=== PATIENT | female | born 1980 | race Caucasian/White ===

== ENCOUNTER → 2017-07-19 | Outpatient (CLI) | payer OTHER ==
[2017-07-19 17:21] LABS: Anisocytosis Slight; HGB 8.6 gm/dL (11.4-16.0); Hypochromasia Marked; MCH 22.2 pg (25.0-35.0); MCHC 28.7 g/dL (31.0-37.0); MCV 77.5 fL (80.0-100.0); Mean Platelet Volume 7.7; Microcytosis Slight; Platelet Count 189 k/uL (150-450); RBC 3.87 m/uL (3.80-5.40); WBC 6.3 k/uL (3.8-10.6)
== END ==
LOC: LABPAT 16:34
PROVIDERS: ATTEND Obstetrics & Gynecology
DX: Z01.812 Encounter for preprocedural laboratory examination (principal)
CPT/HCPCS: 36415; 85027

== ENCOUNTER 2017-07-24 06:15 | Day surgery (SDC) | payer OTHER ==
[2017-07-19 16:00] VITALS: BMI 22.8
--- NOTE | 2017-07-23 16:38 | P.HPOB ---
History of Present Illness H&P Date: 07/23/17 Chief Complaint: Family planning Jerilyn is a 29-year-old female who is completed her family planning desires permanent sterilization. Risks/benefits/alternatives to left scopic tubal occlusion were discussed with the patient in detail and all questions were answered for the patient prior to proceeding to the operating room. Risks did include but were not limited to bleeding, infection, damage to bladder, damage to bowel, vascular injuries, nerve damage even potentially . Past Medical History Additional Past Medical History / Comment(s): anemia History of Any Multi-Drug Resistant Organisms: None Reported Past Surgical History: Section, Orthopedic Surgery Additional Past Surgical History / Comment(s): wrist procedure Past Anesthesia/Blood Transfusion Reactions: No Reported Reaction, Motion Sickness Smoking Status: Current every day smoker - Past Family History Mother Family Medical History: Cancer Additional Family Medical History / Comment(s): cervical Medications and Allergies Home Medications Medication Instructions Recorded Confirmed Type No Known Home Medications [No 07/19/17 07/19/17 History Known Home Medications] Allergies Allergy/AdvReac Type Severity Reaction Status Date / Time No Known Allergies Allergy Verified 07/19/17 15:53 Exam Osteopathic Statement: *. No significant issues noted on an osteopathic structural exam other than those noted in the History and Physical/Consult. - OBG Physical Exam Breast: both: normal (no masses) Abdomen: bowel sounds normal, no diffuse tenderness, no bruit present, no guarding noted, no hepatomegaly, no splenomegaly, no mass Vulva: both: normal Vagina: normal moisture, no discharge Cervix: no lesion, no discharge Uterus: normal size, normal contour Adnexa: both: normal Anus/Rectum: normal perianal skin, no rectal mass, no hemorrhoids, heme negative Assessment and Plan Assessment: Family planning
[~2017-07-24 06:15] MED LIST: DEXAMETHASONE SOD PHOSPHATE 10 MG/ML 1 ML VIAL IV ONE; LACTATED RINGERS 1,000 ML IV SCH; MIDAZOLAM 2 MG/2 ML VIAL IV PRN; ONDANSETRON 4 MG/2 ML VIAL IVP ONE; Pre Op ABX Message 1 EACH MISC MISCELLANE ONE; SCOPOLAMINE 1.5MG/72HR PATCH TRANSDERM ONE; fentaNYL (PF) 50 MCG/ML 2 ML AMP IV PRN
[2017-07-24 06:50] VITALS: RESP 16
[2017-07-24] MEDS ORDERED: BUPIVACAINE (PF) 0.5% 30 ML VIAL SQ ONE ×2 (07:47→08:26)
[2017-07-24] MEDS ORDERED: LIDOCAINE 1% INJ 10MG/ML (20 ML MDV) ONE (07:56)
[2017-07-24] MEDS ORDERED: MIDAZOLAM 2 MG/2 ML VIAL ONE (07:56)
[2017-07-24] MEDS ORDERED: KETOROLAC 30 MG/ML 1 ML VIAL ONE (07:56)
[2017-07-24] MEDS ORDERED: fentaNYL (PF) 50 MCG/ML 2 ML AMP ONE (07:56)
[2017-07-24] MEDS ORDERED: PROPOFOL 10 MG/ML 20 ML VIAL IV ONE (07:56)
[2017-07-24] MEDS ORDERED: SUCCINYLCHOLINE CHLORIDE 100 MG/5 ML SYR IV ONE (07:56)
--- NOTE | 2017-07-24 08:36 | P.OP ---
Date of Procedure: 07/24/17 Preoperative Diagnosis: Family planning Postoperative Diagnosis: Same Procedure(s) Performed: Laparoscopic tubal ligation with Filshie clips Anesthesia: KILEY Surgeon: Robert Baker Estimated Blood Loss (ml): 3 Urine output (ml): 20 Pathology: none sent Condition: stable Disposition: same day Operative Findings: Normal female pelvic anatomy Description of Procedure: Patient was taken to the operating suite where a general anesthetic was found be adequate. She was prepped and draped in the normal sterile fashion and placed in the dorsal lithotomy position. Initially a speculum was inserted into the vagina and the anterior lip cervix was identified and grasped with Allis clamp. Uterus was then sounded to 9 cm and a uterine manipulator was inserted without difficulty. Red rubber catheter was then used to drain the bladder of urine and other instruments removed from the vagina. Gloves were then changed and attention was turned to the abdominal portion of procedure. 3 mL of quarter percent Marcaine was then injected periumbilically and a 5 mm skin incision was made through this incision. Under direct visualization with an optical trocar and sleeve the camera was then inserted. Once peritoneal placement was assured gas was allowed to fully insufflate the abdomen and patient was then placed in steep Trendelenburg position. A second port and sleeve were then again inserted under direct visualization through an 8 mm skin incision 3 cm above the pubic symphysis. Uterus was then elevated observations pelvis was then made. First the right fallopian tube than left fallopian tube pedicles applied 2-3 cm from uterine cornu. With no bleeding noted in the mesosalpinx, instruments were removed and gas was allowed to expel from the abdomen. 5 deep breaths were provided during this process. Once completed and all incidents were removed 4-0 Vicryl used to close incision subcuticularly and the remaining 7 mL of quarter percent Marcaine was then injected around these incisions. Instruments were then removed from the vagina and patient was then taken to the recovery room in stable and satisfactory condition. Sponge, lap, needle counts were all correct 2. Plan - Discharge Summary New Discharge Prescriptions: New Ibuprofen [Motrin] 600 mg PO Q6HR PRN #30 tab PRN Reason: Pain Discharge Medication List Ibuprofen [Motrin] 600 mg PO Q6HR PRN #30 tab 07/24/17 [Rx] Follow up Appointment(s)/Referral(s): Robert Baker DO [Doctor of Osteopathic Medicine] - 2 Weeks Activity/Diet/Wound Care/Special Instructions: , And pelvic rest. If any high temperatures, heavy bleeding, or severe pain call my office Discharge Disposition: HOME SELF-CARE
[2017-07-24 08:53] VITALS: TEMP 97
[2017-07-24] MEDS: MEPERIDINE 50 MG/ML SYRINGE IVP ONE ×2 (09:09→09:19)
[2017-07-24] MEDS ORDERED: IBUPROFEN 200 MG TAB PO ONE (10:07)
[2017-07-24 10:15] VITALS: BP 138/87; PULSE 84
== END 2017-07-24 10:33 | disposition home or self-care (01) ==
LOC: OR 06:15
PROVIDERS: ATTEND Obstetrics & Gynecology
DX: Z30.2 Encounter for sterilization (principal); F17.200 Nicotine dependence, unspecified, uncomplicated
CPT/HCPCS: 81025; 58671; J2250; J1100; J2175; J2405; J2001; J3010; J1885; J0330; J2704

== ENCOUNTER → 2018-01-03 | Outpatient (CLI) | payer OTHER ==
--- NOTE | 2018-01-03 17:22 | US ---
EXAMINATION TYPE: US pelvic complete DATE OF EXAM: 01/03/2018 COMPARISON: NONE CLINICAL HISTORY: N92.6 Irregular menses. TECHNIQUE: Transabdominal (TA). Date of LMP: 12/04/2017 EXAM MEASUREMENTS: Uterus: 9.7 x 5.2 x 7.2 cm Endometrial Stripe: 1.2 cm Right Ovary: 3.3 x 3.0 x 2.9 cm Left Ovary: 3.5 x 2.5 x 2.6 cm 1. Uterus: Anteverted wnl 2. Endometrium: wnl 3. Right Ovary: wnl 4. Left Ovary: wnl 5. Bilateral Adnexa: wnl 6. Posterior cul-de-sac: no free fluid IMPRESSION: 1. Endometrial stripe measuring 1.2 cm. Correlate with the menstrual cycle. 2. Pelvic ultrasound otherwise unremarkable.
== END | disposition home or self-care (01) ==
LOC: RADUSWWP 16:03
PROVIDERS: ATTEND Obstetrics & Gynecology
DX: N92.6 Irregular menstruation, unspecified (principal)
CPT/HCPCS: 76856

== ENCOUNTER 2018-06-06 16:34 | Emergency (ER) | payer OTHER ==
--- NOTE | 2018-06-06 18:03 | ED ---
Psych HPI - General Source: patient, family, RN notes reviewed, old records reviewed Mode of arrival: ambulatory Limitations: altered mental status (Alcohol intoxication) - History of Present Illness MD Complaint: suicidal ideation, feels depressed -: unknown Associated Psychiatric Symptoms: depression, suicidal ideation History of same: Yes Quality: intermittent Improves With: none Worsens With: none Context: recent alcohol abuse Associated Symptoms: denies other symptoms Treatments Prior to Arrival: placed on mental health hold If Self Harm: admits thoughts of self harm <Diony Olguin - Last Filed: 06/06/18 23:48> <Diony Leija - Last Filed: 06/07/18 10:37> - General Chief Complaint: Psychiatric Symptoms Stated Complaint: EPS eval Time Seen by Provider: 06/06/18 16:47 - Related Data Home Medications Medication Instructions Recorded Confirmed Ferrous Sulfate [Feosol] 325 mg PO DAILY 06/06/18 06/06/18 Allergies Allergy/AdvReac Type Severity Reaction Status Date / Time No Known Allergies Allergy Verified 06/06/18 16:50 Review of Systems ROS Other: All systems not noted in ROS Statement are negative. <Diony Olguin - Last Filed: 06/06/18 23:48> ROS Other: All systems not noted in ROS Statement are negative. <Diony Leija - Last Filed: 06/07/18 10:37> ROS Statement: Those systems with pertinent positive or pertinent negative responses have been documented in the HPI. Past Medical History Additional Past Medical History / Comment(s): anemia History of Any Multi-Drug Resistant Organisms: None Reported Past Surgical History: Section, Orthopedic Surgery Additional Past Surgical History / Comment(s): wrist procedure Past Anesthesia/Blood Transfusion Reactions: No Reported Reaction, Motion Sickness Past Psychological History: No Psychological Hx Reported Past Alcohol Use History: Abuse, Daily, Heavy Past Drug Use History: Marijuana - Past Family History Mother Family Medical History: Cancer Additional Family Medical History / Comment(s): cervical <Diony Olguin - Last Filed: 06/06/18 23:48> General Exam Limitations: no limitations General appearance: alert, in no apparent distress, appears intoxicated Head exam: Present: atraumatic, normocephalic, normal inspection Eye exam: Present: normal appearance, PERRL, EOMI. Absent: scleral icterus, conjunctival injection, periorbital swelling ENT exam: Present: normal exam, mucous membranes moist Neck exam: Present: normal inspection. Absent: tenderness, meningismus, lymphadenopathy Respiratory exam: Present: normal lung sounds bilaterally. Absent: respiratory distress, wheezes, rales, rhonchi, stridor Cardiovascular Exam: Present: regular rate, normal rhythm, normal heart sounds. Absent: systolic murmur, diastolic murmur, rubs, gallop, clicks GI/Abdominal exam: Present: soft, normal bowel sounds. Absent: distended, tenderness, guarding, rebound, rigid Extremities exam: Present: normal inspection, full ROM, normal capillary refill. Absent: tenderness, pedal edema, joint swelling, calf tenderness Back exam: Present: normal inspection Neurological exam: Present: alert, oriented X3, CN II-XII intact Psychiatric exam: Present: normal affect, normal mood Skin exam: Present: warm, dry, intact, normal color. Absent: rash <Diony Olguin Filed: 06/06/18 23:48> Course <Diony Olguin Filed: 06/06/18 23:48> Vital Signs 06/06/18 06/06/18 06/07/18 16:42 20:16 03:35 Temperature 98.2 F Pulse Rate 118 H 108 H 118 H Respiratory 18 16 16 Rate Blood Pressure 151/94 139/89 129/89 O2 Sat by Pulse 98 100 97 Oximetry 06/07/18 06:06 Temperature 97.6 F Pulse Rate 94 Respiratory 16 Rate Blood Pressure 144/88 O2 Sat by Pulse 97 Oximetry - Reevaluation(s) Reevaluation #1: 06/06/18 23:48 Patient with medically clear 5 AM (Diony Olguin) Medical Decision Making <Diony Leija Last Filed: 06/07/18 10:37> - Medical Decision Making Once the patient was sober she denied any intention of harming herself. EPS evaluated the patient and determined that she could go home. (Diony Leija) Disposition <Diony Olguin Last Filed: 06/06/18 23:48> Is patient prescribed a controlled substance at d/c from ED?: No Time of Disposition: 10:37 <Diony Leija Filed: 06/07/18 10:37> Clinical Impression: Alcohol intoxication, Situational depression Disposition: HOME SELF-CARE Condition: Good Instructions (If sedation given, give patient instructions): Depression (ED), Alcohol Intoxication (ED) Referrals: Vlad Jamil MD [Primary Care Provider] - 1-2 days
[2018-06-06 20:17] VITALS: RESP 16
[2018-06-06] MEDS ORDERED: ACETAMINOPHEN TAB 325 MG TAB PO STA (23:53)
[2018-06-07] MEDS ORDERED: SODIUM CHLORIDE 0.9% 1,000 ML IV ONE (04:25)
[2018-06-07] MEDS ORDERED: ACETAMINOPHEN TAB 325 MG TAB PO STA (04:27)
[2018-06-07] MEDS ORDERED: chlordiazePOXIDE 25 MG CAP PO STA (05:46)
[2018-06-07 06:10] VITALS: BP 144/88; PULSE 94; TEMP 97.6
== END 2018-06-07 10:59 | disposition home or self-care (01) ==
LOC: EC 16:34
DX: F43.21 Adjustment disorder with depressed mood (principal); F10.129 Alcohol abuse with intoxication, unspecified; Z79.899 Other long term (current) drug therapy; Z86.2 Personal history of diseases of the blood and blood-forming organs and certain disorders involving the immune mechanism
CPT/HCPCS: 82075; 96360; 99284

== ENCOUNTER 2018-07-31 20:14 | Emergency (ER) | payer OTHER ==
[2018-07-31 20:30] VITALS: RESP 16
[2018-07-31] MEDS ORDERED: SODIUM CHLORIDE 0.9% 1,000 ML IV ONE (21:17)
[2018-07-31] MEDS ORDERED: SODIUM CHLORIDE 0.9% 500 ML 500 ML IV ONE (21:17)
[2018-07-31] MEDS ORDERED: LORazepam 2 MG/ML INJ IV STA (21:18)
--- NOTE | 2018-07-31 21:27 | ED ---
General Adult HPI - General Chief complaint: Weakness Stated complaint: ETOH Time Seen by Provider: 07/31/18 20:25 Source: patient, EMS, RN notes reviewed Mode of arrival: EMS Limitations: no limitations - History of Present Illness Initial comments: This is a 38-year-old female who comes in stating she is an alcoholic. Patient states she's been trying to stop drinking for the last for 5 days. Patient states about 4 days ago she fell and hit the back of her head and there was a large scalp hematoma at that time. Patient states since then she's felt a little more dizzy and has a slight headache. Patient states this also could be because she is trying to stop drinking. Patient states she's had no recent fever chills or cough. Patient denies chest pain palpitations difficulty breathing or shortness of breath per patient denies abdominal pain patient denies nausea vomiting diarrhea. Patient denies any other injury at this time patient denies any neck pain patient denies any numbness weakness. Patient denies any visual disturbance. - Related Data Home Medications Medication Instructions Recorded Confirmed Ferrous Sulfate [Feosol] 325 mg PO DAILY 06/06/18 07/31/18 Allergies Allergy/AdvReac Type Severity Reaction Status Date / Time No Known Allergies Allergy Verified 07/31/18 21:23 Review of Systems ROS Statement: Those systems with pertinent positive or pertinent negative responses have been documented in the HPI. ROS Other: All systems not noted in ROS Statement are negative. Past Medical History Additional Past Medical History / Comment(s): anemia History of Any Multi-Drug Resistant Organisms: None Reported Past Surgical History: Section, Orthopedic Surgery Additional Past Surgical History / Comment(s): wrist procedure Past Anesthesia/Blood Transfusion Reactions: No Reported Reaction, Motion Sickness Past Psychological History: Anxiety, Depression Smoking Status: Current every day smoker Past Alcohol Use History: Abuse, Daily, Heavy Past Drug Use History: Marijuana - Past Family History Mother Family Medical History: Cancer Additional Family Medical History / Comment(s): cervical General Exam - General Exam Comments Initial Comments: GENERAL: Patient is well-developed and well-nourished. Patient is nontoxic and well- hydrated and in no acute distress. ENT: Neck is soft and supple. No significant lymphadenopathy is noted. Oropharynx is clear. Moist mucous membranes. Neck has full range of motion without eliciting any pain. EYES: The sclera were anicteric and conjunctiva were pink and moist. Extraocular movements were intact and pupils were equal round and reactive to light. Eyelids were unremarkable. PULMONARY: Unlabored respirations. Good breath sounds bilaterally. No audible rales rhonchi or wheezing was noted. CARDIOVASCULAR: There is a regular rate and rhythm without any murmurs gallops or rubs. ABDOMEN: Soft and nontender with normal bowel sounds. No palpable organomegaly was noted. There is no palpable pulsatile mass. SKIN: Skin is clear with no lesions or rashes and otherwise unremarkable. NEUROLOGIC: Patient is alert and oriented x3. Cranial nerves II through XII are grossly intact. Motor and sensory are also intact. Normal speech, volume and content. Symmetrical smile. MUSCULOSKELETAL: Normal extremities with adequate strength and full range of motion. LYMPHATICS: No significant lymphadenopathy is noted PSYCHIATRIC: Normal psychiatric evaluation. Limitations: no limitations Course Vital Signs 07/31/18 07/31/18 20:23 22:09 Temperature 97.4 F L Pulse Rate 82 79 Respiratory 16 16 Rate Blood Pressure 145/99 139/84 O2 Sat by Pulse 97 100 Oximetry Medical Decision Making - Medical Decision Making EKG shows normal sinus rhythm at 81 bpm UT interval 252 QRS is 86 QT interval 396 QTC is 460. Patient's EKG shows no ST segment elevation or depression. CT of the brain shows no acute abnormality Patient was much improved after the Ativan. - Lab Data Result diagrams: 07/31/18 21:20 07/31/18 21:20 Lab Results 07/31/18 07/31/18 Range/Units 21:20 21:20 WBC 3.3 L (3.8-10.6) k/uL RBC 3.82 (3.80-5.40) m/uL Hgb 11.3 L (11.4-16.0) gm/dL Hct 36.5 (34.0-46.0) % MCV 95.8 (80.0-100.0) fL MCH 29.7 (25.0-35.0) pg MCHC 31.0 (31.0-37.0) g/dL RDW 19.4 H (11.5-15.5) % Plt Count 99 L (150-450) k/uL Neutrophils % 67 % Lymphocytes % 21 % Monocytes % 8 % Eosinophils % 1 % Basophils % 0 % Neutrophils # 2.2 (1.3-7.7) k/uL Lymphocytes # 0.7 L (1.0-4.8) k/uL Monocytes # 0.3 (0-1.0) k/uL Eosinophils # 0.0 (0-0.7) k/uL Basophils # 0.0 (0-0.2) k/uL Anisocytosis Slight Macrocytosis Slight Sodium 138 (137-145) mmol/L Potassium 3.8 (3.5-5.1) mmol/L Chloride 105 (98-107) mmol/L Carbon Dioxide 23 (22-30) mmol/L Anion Gap 10 mmol/L BUN 11 (7-17) mg/dL Creatinine 0.55 (0.52-1.04) mg/dL Est GFR (CKD-EPI)AfAm >90 (>60 ml/min/1.73 sqM) Est GFR (CKD-EPI)NonAf >90 (>60 ml/min/1.73 sqM) Glucose 77 (74-99) mg/dL Calcium 9.4 (8.4-10.2) mg/dL Magnesium 1.9 (1.6-2.3) mg/dL Total Bilirubin 0.6 (0.2-1.3) mg/dL AST 49 H (14-36) U/L ALT 41 (9-52) U/L Alkaline Phosphatase 58 (38-126) U/L Total Protein 6.8 (6.3-8.2) g/dL Albumin 4.3 (3.5-5.0) g/dL Disposition Clinical Impression: Alcoholism, Alcohol withdrawal Disposition: HOME SELF-CARE Condition: Good Instructions (If sedation given, give patient instructions): Alcohol Withdrawal (ED) Additional Instructions: Patient should follow-up with rehabilitation facility. Is patient prescribed a controlled substance at d/c from ED?: No Referrals: None,Stated [Primary Care Provider] - 1-2 days Time of Disposition: 23:47
[2018-07-31 21:35] LABS: Anisocytosis Slight; Basophils % (A) 0 %; Eosinophils % (A) 1 %; HCT 36.5 % (34.0-46.0); HGB 11.3 gm/dL (11.4-16.0); Lymphocytes # (A) 0.7 k/uL (1.0-4.8); Lymphocytes % (A) 21 %; MCH 29.7 pg (25.0-35.0); MCV 95.8 fL (80.0-100.0); Macrocytosis Slight; Mean Platelet Volume 7.1; Monocytes # (A) 0.3 k/uL (0-1.0); Monocytes % (A) 8 %; Neutrophils # (A) 2.2 k/uL (1.3-7.7); Neutrophils % (A) 67 %; RBC 3.82 m/uL (3.80-5.40); RDW 19.4 % (11.5-15.5); WBC 3.3 k/uL (3.8-10.6)
[2018-07-31 21:46] LABS: ALT 41 U/L (9-52); AST 49 U/L (14-36); Albumin 4.3 g/dL (3.5-5.0); Alkaline Phosphatase 58 U/L (38-126); Anion Gap 10 mmol/L; Blood Urea Nitrogen 11 mg/dL (7-17); Calcium 9.4 mg/dL (8.4-10.2); Carbon Dioxide 23 mmol/L (22-30); Chloride 105 mmol/L (98-107); Glucose 77 mg/dL (74-99); Magnesium 1.9 mg/dL (1.6-2.3); Potassium 3.8 mmol/L (3.5-5.1); Sodium 138 mmol/L (137-145); Total Bilirubin 0.6 mg/dL (0.2-1.3); Total Protein 6.8 g/dL (6.3-8.2)
[2018-07-31 22:14] LABS: Platelet Count 99 k/uL (150-450)
--- NOTE | 2018-07-31 23:28 | CT ---
EXAM: CT Head Without Intravenous Contrast CLINICAL HISTORY: ITS.REASON CT Reason: Pain TECHNIQUE: Axial computed tomography images of the head/brain without intravenous contrast. CTDI is 49.27 mGy and DLP is 1052.4 mGy-cm. This CT exam was performed using one or more of the following dose reduction techniques: automated exposure control, adjustment of the mA and/or kV according to patient size, and/or use of iterative reconstruction technique. COMPARISON: No relevant prior studies available. FINDINGS: Brain: No hemorrhage. No acute cortical infarct. No mass effect or midline shift. Ventricles: Unremarkable. Bones/joints: No acute fracture. Soft tissues: Mild posterior scalp soft tissue swelling. Sinuses: Unremarkable as visualized. Mastoid air cells: Unremarkable as visualized. IMPRESSION: No acute intracranial process.
[2018-08-01 00:11] VITALS: BP 132/85; PULSE 90; TEMP 97.8
== END 2018-08-01 00:11 | disposition home or self-care (01) ==
LOC: EC 20:14
DX: F10.239 Alcohol dependence with withdrawal, unspecified (principal); D64.9 Anemia, unspecified; F17.200 Nicotine dependence, unspecified, uncomplicated; Z79.899 Other long term (current) drug therapy
CPT/HCPCS: 82075; 36415; 93005; 80053; 83735; 85025; 70450; 99285; 96374; 96361; J2060

== ENCOUNTER → 2019-08-05 | Outpatient (CLI) | payer BC, OTHER ==
--- NOTE | 2019-08-05 14:57 | XR ---
EXAMINATION TYPE: XR wrist complete RT DATE OF EXAM: 08/05/2019 CLINICAL HISTORY: Right wrist pain for 2 months after strain TECHNIQUE: Frontal, lateral and oblique images of the right wrist are obtained. Scaphoid view was al so obtained. COMPARISON: None FINDINGS: There is no acute fracture/dislocation evident in the right wrist. The joint spaces in th e right wrist appear within normal limits. The overlying soft tissues demonstrate prominence over th e distal radius. IMPRESSION: There is no acute fracture or dislocation in the right wrist. There is some soft tissue prominence over the distal radius. MRI should be considered to evaluate for tendinosis or ganglion cy st.
== END | disposition home or self-care (01) ==
LOC: RADXRMAIN 13:07
PROVIDERS: ATTEND Nurse Practitioner Women's Health
DX: M25.531 Pain in right wrist (principal)

== ENCOUNTER → 2019-12-09 | Outpatient (CLI) | payer OTHER ==
--- NOTE | 2019-12-09 15:00 | MM ---
Reason for exam: screening (asymptomatic). Baseline mammogram. History: Family history of breast cancer in aunt at age 35. Excisional biopsy of the right breast, 1999. Took hormonal contraceptives for 2 years. Physical Findings: Nurse did not find any significant physical abnormalities on exam. MG Screening Mammo w CAD Bilateral CC and MLO view(s) were taken. No prior studies available for comparison. The breast tissue is extremely dense which could obscure a lesion on mammography. Finding: There are indeterminate grouped/clustered calcifications in the upper quadrant, middle posterior position of the left breast. These results were verbally communicated with the patient and result sheet given to the patient on 12/09/19. ASSESSMENT: Incomplete: need additional imaging evaluation, BI-RAD 0 RECOMMENDATION: Special view mammogram of the left breast.
--- NOTE | 2019-12-09 15:03 | MM ---
Reason for exam: additional evaluation requested from abnormal screening. Last mammogram was performed 20 years ago. History: Family history of breast cancer in aunt at age 35. Excisional biopsy of the right breast, 1999. Took hormonal contraceptives for 2 years. Physical Findings: Breast exam preformed at baseline screening. MG Work Up Mamm w CAD LT CC with magnification and MLO with magnification view(s) were taken of the left breast. The breast tissue is extremely dense which could obscure a lesion on mammography. Finding: There are regional calcifications in the slight upper outer quadrant, middle posterior position of the left breast. These results were verbally communicated with the patient and result sheet given to the patient on 12/09/19. ASSESSMENT: Suspicious, BI-RAD 4 RECOMMENDATION: Stereotactic core biopsy of the left breast. Called Dr. Millan's office with mammographic findings and has scheduled an appointment for the patient for 01/08/20 at 8:[address] Sanchez. Biopsy scheduled for 12/24/19 at 8:00. PRELIMINARY REPORT CALLED AND FAXED TO DR. SANCHEZ ON 12/09/19.
== END | disposition home or self-care (01) ==
LOC: RADMAMWWP 13:05
PROVIDERS: ATTEND Family Medicine
DX: Z12.31 Encounter for screening mammogram for malignant neoplasm of breast (principal)
CPT/HCPCS: 77065; 77067

== ENCOUNTER → 2019-12-24 | Day surgery (SDC) | payer OTHER ==
[2019-12-24 07:29] VITALS: RESP 16
[2019-12-24 09:09] VITALS: BP 118/73; PULSE 71; TEMP 98.1
--- NOTE | 2019-12-24 10:10 | MM ---
EXAMINATION TYPE: MG stereo VAD BX LT DATE OF EXAM: 12/24/2019 COMPARISON: Prior mammogram December 09, 2019 . CLINICAL HISTORY: Abnormal mammogram. TECHNIQUE: Stereotactic guided core biopsy of left breast. FINDINGS: The procedure of stereotactic guided core biopsy was explained to the patient. Benefits, a lternatives, and risks were discussed. An informed consent was then obtained. [facility] for [facility] was chosen. Shortness pathway was cranial approach. I performed the localization, then performed the remainder of the procedure. Overlying skin is cleansed with Betadin e. Lidocaine is used as anesthetic into the skin and subcutaneous tissue. Lidocaine with epinephrine is used as anesthetic into deeper tissue during sampling. A vacuum assisted biopsy gun was used to o btain multiple core samples. The patient tolerated the procedure well without any immediate complication. The patient was kept in the radiology department for short stay after the procedure and then discharged home in stable condi tion. Some targeted calcifications are identified in specimen mammogram. Post biopsy mammogram shows the clip to appear in satisfactory position relative to the targeted area of concern on the preproce dure images. IMPRESSION: SUCCESSFUL, UNCOMPLICATED STEREOTACTIC GUIDED CORE BIOPSY OF AREA OF CONCERN IN THE LEFT BREAST, FULL PATHOLOGY RESULTS TO FOLLOW. Low to intermediate index of suspicion noted at time of procedure.
== END ==
LOC: RADUSWWP 07:06
PROVIDERS: ATTEND Surgery
DX: N60.12 Diffuse cystic mastopathy of left breast (principal); R92.1 Mammographic calcification found on diagnostic imaging of breast; D24.2 Benign neoplasm of left breast; R92.8 Other abnormal and inconclusive findings on diagnostic imaging of breast; N60.22 Fibroadenosis of left breast; N60.82 Other benign mammary dysplasias of left breast
CPT/HCPCS: 88305; 19081; A4648; J2001